=== PATIENT | female | born 1985 | race Caucasian/White ===

== ENCOUNTER 2021-01-16 01:51 | Emergency (ER) | payer OTHER ==
[~2021-01-16] VITALS: Ht 160 cm; Wt 52.0 kg
[2021-01-16 05:20] VITALS: BP 129/81
== END 2021-01-16 05:22 | disposition home or self-care (01) ==
LOC: ER 01:51
DX: R68.89 Other general symptoms and signs (principal)
CPT/HCPCS: 99281